=== PATIENT | female | born 1985 | race Caucasian/White ===

== ENCOUNTER 2019-01-12 21:14 | Emergency (ER) | payer OTHER ==
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
[2019-01-12] MEDS ORDERED: DEXAMETHASONE 4 MG/ML VIAL IVP ONE (21:29)
[2019-01-12] MEDS ORDERED: DIAZEPAM 10 MG/2 ML SYR IVP ONE (21:29)
[2019-01-12] MEDS ORDERED: GABAPENTIN 300 MG CAP PO ONE (21:29)
[2019-01-12] MEDS ORDERED: HYDROmorphONE/DILAUDID 2 MG/ML INJ IVP ONE (22:16)
[2019-01-12] MEDS ORDERED: OXYCODONE/APAP 5/325MG PREPACK#4 BTL TAKEHOME ONE (23:46)
[2019-01-13 00:08] VITALS: BP 125/65
== END 2019-01-13 00:06 | disposition home or self-care (01) ==
DX: M50.30 Other cervical disc degeneration, unspecified cervical region (principal); M25.78 Osteophyte, vertebrae; M54.40 Lumbago with sciatica, unspecified side; Z98.890 Other specified postprocedural states
CPT/HCPCS: 96374; J1100; J1170; J3360

== ENCOUNTER 2019-02-12 22:30 | Emergency (ER) | payer OTHER | END 2019-02-13 00:50 | disposition home or self-care (01) ==